=== PATIENT | male | born 1985 | race Caucasian/White ===

== ENCOUNTER 2024-06-29 09:34 | Emergency (ER) | payer BC ==
[2024-06-29 09:45] VITALS: TEMP 99.3
[2024-06-29] MEDS: NORCO 5/325 MG PO ONE (10:04)
[2024-06-29] MEDS ORDERED: NORCO 5/325 MG ONE (10:04)
--- NOTE | 2024-06-29 10:06 | ERPHSYRPT ---
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 He is had a before in his right. Has been seen twice for this already. Once in emergency room in [facility] and by his orthotic fitter as well 2. He says that this is similar to the symptoms he had in his right eye. He says its painful in the skin surrounding the eye. There is no rash consistent with shingles or anything like that. He has no fever or chills. He can still see out of that eye but is little bit blurry at times. He also has some weakness in his left eyelid. Apparently there is nothing that can be done for this other than waiting it out. He is basically just here for some pain medicine. He says it hurts in the soft tissue surrounding the eye. Timing/Duration: week(s) (1 week) Location: left eye Apparent Injury: no Associated Symptoms: pain Allergies/Adverse Reactions: No Known Drug Allergies Allergy (Unverified 06/29/24 09:42) Hx Influenza Vaccination/Date Given: No Hx Pneumococcal Vaccination/Date Given: No Immunizations Up to Date: Yes Travel Risk - International Travel Have you traveled outside of the country in past 3 weeks: No - Emerging Infectious Disease Are you exhibiting symptoms associated with any current EIDs: No - Review of Systems Constitutional: No Symptoms Ears, Nose, & Throat: No Symptoms Respiratory: No Symptoms - Past Medical History Pertinent Past Medical History: Yes ENT History: Other Cardiac History: Coronary Artery Disease Endocrine Medical History: Diabetes Type I History: Dialysis, Renal Disease Other Medical History: 3rd nerve palsy - Past Surgical History Past Surgical History: Yes Cardiac: CABG, Cardiac Catheterization Musculoskeletal: Amputation Other Surgical History: fistula,left leg amputation - Social History Smoking Status: Former smoker Exposure to second hand smoke: No Drug Use: marijuana - Social Determinants of Health Will the patient participate in the screening: Yes Do you worry about a steady place to live?: No Do you have any problems with any of the following?: No known problems In the past 12 months,have you had to go without utilities?: No Transportation Issues: No Has anyone in your support network made you feel unsafe?: No Have you or anyone in your house had to go without enough: No - Nursing Vital Signs Nursing Vital Signs: Initial Vital Signs Temperature 99.3 F 06/29/24 09:44 Pulse Rate 72 06/29/24 09:44 Respiratory Rate 18 06/29/24 09:44 Blood Pressure 174/77 06/29/24 09:44 O2 Sat by Pulse Oximetry 97 06/29/24 09:44 Pain Scale Pain Intensity 10 - Physical Exam General Appearance: no apparent distress Eye Exam: bilateral eye: normal inspection, PERRL, EOMI Ears, Nose, Throat Exam: normal ENT inspection, TMs normal, pharynx normal Neck Exam: normal inspection, non-tender Neurologic: alert, oriented x 3, cooperative Skin Exam: normal color, warm, other (No rash around the eye consistent with facial shingles) SpO2: 97 - Course Nursing assessment & vital signs reviewed: Yes Ordered Tests: Medication Summary Discontinued Medications Generic Name Dose Route Start Last Admin Trade Name Freq PRN Reason Stop Dose Admin Hydrocodone Bitart/Acetaminophen 1 tab 06/29/24 09:55 06/29/24 10:04 Hydrocodone/Apap 5/325 1 Tab Tablet PO 06/29/24 09:56 1 tab STAT ONE Administration Hydrocodone Bitart/Acetaminophen Confirm 06/29/24 10:04 Hydrocodone/Apap 5/325 1 Tab Tablet Administered 06/29/24 10:05 Dose 1 tab .ROUTE .STK-MED ONE - Progress Progress Note: 06/29/24 10:20 Patient was stable throughout stay. I am is going to refill his pain medicine and discharged him to home and follow-up with his pumper gauger as scheduled. Medical Desision Making - Social Determinants of Health Pt's dx & treatment plan are significantly limited by SDOH: limited education - Risk of complications Minimal Risk: Minimal risk of morbidity - Departure Departure Disposition: Home Clinical Impression: Diabetic neuropathy, painful Condition: Stable Critical Care Time: No Prescriptions: Hydrocodone/Acetaminophen [Hydrocodone-Acetamin 5-325 mg] 1 tab PO Q6HPRN PRN #14 tablet MDD 4 PRN Reason: Pain Hydrocodone/Acetaminophen [Hydrocodone-Acetamin 7.5-325] 1 each PO TID #14 tablet MDD 3
[2024-06-29 10:36] VITALS: BP 157/64; PULSE 70; RESP 16; O2SAT 93
== END 2024-06-29 10:40 | disposition home or self-care (01) ==
LOC: ED 09:34
DX: E10.40 Type 1 diabetes mellitus with diabetic neuropathy, unspecified (principal); H49.02 Third [oculomotor] nerve palsy, left eye; E10.22 Type 1 diabetes mellitus with diabetic chronic kidney disease; N18.6 End stage renal disease; Z99.2 Dependence on renal dialysis; Z55.9 Problems related to education and literacy, unspecified; Z79.891 Long term (current) use of opiate analgesic
CPT/HCPCS: 99282; A9270-GY